=== PATIENT | female | born 1990 ===

== ENCOUNTER 2019-03-08 12:47 | Emergency (ER) | payer MEDICAID ==
[~2019-03-08] VITALS: Ht 160 cm; Wt 65.8 kg
[2019-03-08 12:50] VITALS: BP 122/75
--- NOTE | 2019-03-08 12:54 | NUR ---
ED Nurse Note: Pt came in due to SOB and feeling of heart jumping around his chest. reports increased stress recently. AAo x4, ambulatory with no respiratory distress. Speaks in clear sentences.
--- NOTE | 2019-03-08 13:48 | Emergency Room Report ---
History of Present Illness General Chief Complaint: Behavioral Complaint Source: Patient, EMS Present Illness HPI 28-year-old female with history of bipolar disorder currently not under the care of psychiatrist and history of methamphetamine and cocaine use, brought in by paramedics due to increasing anxiety and palpitation that started 3 days ago however reports that she has had it all her life with increased intensity in the past few days. Patient reports that she used to use methamphetamine and cocaine for her bipolar disorder instead of her regular medication however she stopped using them a month ago and has switched only to THC. Denies SI and HI. Denies recent impulsive behavior and grandiosity. Denies visual and auditory hallucination, changes in sleep and appetite. Patient is interested in voluntary psychiatric follow-up. Denies chest pain and shortness of breath. Denies dizziness and headache. Denies all other associated symptoms including abdominal pain nausea vomiting. Allergies: Coded Allergies: No Known Allergies (Unverified , 03/08/19) Patient History Past Medical History: see triage record Past Surgical History: unable to obtain Pertinent Family History: unable to obtain Last Menstrual Period: bcp--irreg Now: No Immunizations: UTD Reviewed Nursing Documentation: PMH: Agreed; PSxH: Agreed Nursing Documentation-PMH Past Medical History: No History, Except For History Of Psychiatric Problem: Yes - anxiety attacks Review of Systems All Other Systems: negative except mentioned in HPI Physical Exam Vital Signs Date Time Temp Pulse Resp B/P (MAP) Pulse Ox O2 Delivery O2 Flow Rate FiO2 03/08/19 12:38 98.2 82 16 116/78 (91) 99 Room Air Sp02 EP Interpretation: reviewed, normal General Appearance: no apparent distress, alert, GCS 15, non-toxic Head: normocephalic, atraumatic Eyes: bilateral eye normal inspection, bilateral eye PERRL ENT: hearing grossly normal, normal pharynx, no angioedema, normal voice Neck: full range of motion, supple/symm/no masses Respiratory: chest non-tender, lungs clear, normal breath sounds, speaking full sentences Cardiovascular #1: regular rate, rhythm, no edema, no murmur Gastrointestinal: normal bowel sounds, non tender, soft, non-distended, no guarding, no rebound Genitourinary: normal inspection, no CVA tenderness Musculoskeletal: back normal, gait/station normal, normal range of motion, non- tender, calf tenderness Neurologic: alert, oriented x3, responsive, motor strength/tone normal, sensory intact, speech normal Psychiatric: judgement/insight normal, memory normal, mood/affect normal, no suicidal/homicidal ideation, anxious Skin: no rash Lymphatic: no adenopathy Medical Decision Making PA Attestation Diagnosis and treatment plans were reviewed and discussed with my supervising physician Dr. Carter Diagnostic Impression: Primary Impression: Anxiety ER Course 28-year-old female with history of bipolar disorder currently not under the care of psychiatrist and history of methamphetamine and cocaine use, brought in by paramedics due to increasing anxiety and palpitation that started 3 days ago however reports that she has had it all her life with increased intensity in the past few days. Patient reports that she used to use methamphetamine and cocaine for her bipolar disorder instead of her regular medication however she stopped using them a month ago and has switched only to THC. Denies SI and HI. Denies recent impulsive behavior and grandiosity. Denies visual and auditory hallucination, changes in sleep and appetite. Patient is interested in voluntary psychiatric follow-up. Denies chest pain and shortness of breath. Denies dizziness and headache. Denies all other associated symptoms including abdominal pain nausea vomiting. Ddx considered but are not limited to: generalized anxiety disorder, panic attack, depression with psychotic feature, bipolar disorder, drug overdose Vital signs: are WNL, pt. is afebrile H&PE are most consistent with: Anxiety ORDERS: Tox screen, UA, urine , chest x-ray and EKG ED INTERVENTIONS: None required at this time. DISCHARGE: At this time pt. is stable for d/c to home. Will provide printed patient care instructions, and any necessary prescriptions. Care plan and follow up instructions have been discussed with the patient prior to discharge. Facilities this patient is cleared medically and is interested in follow-up with psych. Patient knows that methamphetamine and cocaine should not be used for treatment of bipolar disorder and her urine toxicology screen is negative for both. EKG Diagnostic Results Rate: bradycardiac Rhythm: NSR ST Segments: no acute changes Chest X-Ray Diagnostic Results Chest X-Ray Diagnostic Results : Chest X-Ray Ordered: Yes # of Views/Limited/Complete: 1 View Indication: Shortness of Breath EP Interpretation: Yes PA Xray: Interpretation reviewed, by supervising MD, and agrees with findings. Interpretation: no consolidation, no effusion, no pneumothorax Impression: No acute disease Electronically Signed by: Ana Rosa Deleon PA-C Last Vital Signs Date Time Temp Pulse Resp B/P (MAP) Pulse Ox O2 Delivery O2 Flow Rate FiO2 03/08/19 12:50 98.2 80 19 122/75 100 Room Air Disposition: HOME, SELF-CARE Condition: Stable Patient Instructions: Generalized Anxiety Disorder Ana Rosa Castillo Mar 08, 2019 13:48
[2019-03-08 13:53] VITALS: BP 118/70
--- NOTE | 2019-03-08 13:53 | NUR ---
ER DISCHARGE NOTE: Patient is cleared to be discharged per PA, pt is aox4, on room air, with stable vital signs. pt was given dc instructions, pt was able to verbalize understanding, pt id band removed. pt is able to ambulate with steady gait. pt took all belongings.
--- NOTE | 2019-03-09 11:31 | Diagnostic Imaging Report ---
Indication: Dyspnea Comparison: None A single view chest radiograph was obtained. Findings: Cardiomediastinal appearance is within normal limits for age. There is an asymmetric density projected over the right lung apex which is probably artifactual. Suggest repeat. Pulmonary vascularity is appropriate. The diaphragmatic contour is smooth and costophrenic angles are sharp. No pleural effusions are identified. The bones are unremarkable. Impression: Suspected artifact overlying the right lung apex. Suggest repeat. Negative exam otherwise.
--- NOTE | 2019-03-09 18:37 | Cardiology Report ---
APPROVED REPORT EKG Measurement Heart [id number] Sinus bradycardia Otherwise normal ECG
== END 2019-03-08 14:35 | disposition home or self-care (01) ==
LOC: EDBD 12:47 → EMR 13:45
DX: F41.9 Anxiety disorder, unspecified (principal); F12.10 Cannabis abuse, uncomplicated
CPT/HCPCS: 71045; 80307; 81025; 93005; Z7502; 99283